=== PATIENT | male | born 1950 ===

== ENCOUNTER → 2018-07-31 15:24 | Outpatient (REF) | payer MEDICARE, SELFPAY | LOC: LAB 15:24 | PROVIDERS: Visit Provider Dermatology | DX: D04.39 Carcinoma in situ of skin of other parts of face (principal); L01.00 Impetigo, unspecified | CPT/HCPCS: 87070; 87075; 87077; 87147; 87186; 87205 ==

== ENCOUNTER → 2018-09-01 13:45 | Outpatient (REF) | payer MEDICARE, SELFPAY | LOC: LAB 13:45 | PROVIDERS: Visit Provider Physician Assistant | DX: L01.00 Impetigo, unspecified (principal) | CPT/HCPCS: 87070 ==